=== PATIENT | male | born 2000 | race Caucasian/White ===

== ENCOUNTER 2023-02-22 06:14 | Emergency (ER) | payer OTHER ==
[2023-02-22] MEDS ORDERED: Sodium Chloride 0.9% 10 ML Syringe FLUSH PRN (06:42)
[2023-02-22] MEDS ORDERED: Aspirin 81 MG Tab.Chew PO ONE (06:43)
[2023-02-22 06:50] LABS: BASOPHILS ABSOLUTE AUTO 0.02 K/mm3 (0.01-0.08); BASOPHILS PERCENT AUTO 0.3 % (0.1-1.2); EOSINOPHILS ABSOLUTE AUTO 0.03 K/mm3 (0.04-0.54); EOSINOPHILS PERCENT AUTO 0.4 (0.8-7.0); HEMATOCRIT 43.8 % (40.1-51.0); HEMOGLOBIN 15.6 gm/dl (13.7-17.5); IMMATURE GRAN ABSOLUTE AUTO 0.01 K/mm3 (0.00-0.10); IMMATURE GRAN PERCENT AUTO 0.1 % (<=1.0); LYMPHOCYTES ABSOLUTE AUTO 1.29 K/mm3 (1.32-3.57); MEAN CORPUSCULAR HEMOGLOBIN 32.2 pg (25.7-32.2); MEAN CORPUSCULAR HGB CONC 35.6 g/dl (32.2-35.5); MEAN CORPUSCULAR VOLUME 90.5 fl (79.0-92.2); MEAN PLATELET VOLUME 9.8 fl (9.4-12.3); MONOCYTES ABSOLUTE AUTO 0.41 K/mm3 (0.30-0.82); NEUTROPHILS ABSOLUTE AUTO 5.02 K/mm3 (1.78-5.38); NEUTROPHILS PERCENT AUTO 74.2 % (34.0-67.9); PLATELET COUNT,PLT 233 K/mm3 (163-337); RED BLOOD CELL COUNT 4.84 M/mm3 (4.63-6.08); WHITE BLOOD CELL COUNT,WBC 6.78 K/mm3 (4.23-9.07)
[2023-02-22 07:02] LABS: A/G RATIO 1.3 (1-2); ALANINE AMINOTRANSFERASE,ALT 22 U/L (16-63); ALBUMIN 4.7 g/dl (3.4-5.0); ALKALINE PHOSPHATASE 78 U/L (46-116); ANION GAP 18.6 (5-15); ASPARTATE AMNIOTRANSFERASE,AST 15 U/L (15-37); BILIRUBIN TOTAL 0.7 mg/dL (0.2-1.0); BLOOD UREA NITROGEN,BUN 11 mg/dL (7-18); BUN/CREATININE RATIO 9.2 (14-18); CARBON DIOXIDE,CO2 22 mEq/L (21-32); CHLORIDE,CL 100 mEq/L (98-107); CREATININE 1.2 mg/dL (0.7-1.3); ESTIMATED GFR 88 mL/min (>60); GLUCOSE RANDOM 220 mg/dL (70-99); MAGNESIUM 1.6 mg/dL (1.8-2.4); POTASSIUM,K 2.6 mEq/L (3.5-5.1); PROTEIN TOTAL,TP 8.3 g/dl (6.4-8.2); SODIUM,NA 138 mEq/L (136-145)
[2023-02-22 07:04] LABS: TROPONIN I HIGH SENSITIVITY < 4 pg/mL (<=76)
[2023-02-22] MEDS ORDERED: Labetalol 100 MG/20 ML MDV IVPUSH ONE (07:22)
[2023-02-22] MEDS ORDERED: Potassium Chloride 20 MEQ Tab.ER PO ONE (08:21)
== END 2023-02-22 08:35 | disposition home or self-care (01) ==
LOC: JD.ED 06:14
DX: R07.89 Other chest pain (principal); E87.6 Hypokalemia; R00.0 Tachycardia, unspecified
CPT/HCPCS: 36415; 71045; 80053; 83735; 84484; 85025; 85379; 93005; 96374; 99285; A9270; J3490; 93010; 99284